=== PATIENT | female | born 1955 | race Hispanic/Latino ===

== ENCOUNTER 2018-02-12 09:15 | Outpatient (CLI) | payer OTHER ==
--- NOTE | 2018-02-12 10:39 | RAD ---
LEFT SHOULDER 3 VIEWS: HISTORY: A 62-year-old female with a history of chronic left shoulder pain, tendinitis. FINDINGS: Mild degenerative changes of the AC joint and glenohumeral joint. No fracture or dislocation. IMPRESSION: Degenerative change without fracture or dislocation. POS: OFF
== END 2018-02-12 09:16 | disposition home or self-care (01) ==
LOC: MADRAD 09:15
PROVIDERS: ATTEND Family Medicine
DX: M75.82 Other shoulder lesions, left shoulder (principal); M19.011 Primary osteoarthritis, right shoulder